=== PATIENT | male | born 1980 | race Hispanic/Latino ===

== ENCOUNTER 2024-04-03 13:47 | Emergency (ER) | payer SELFPAY ==
[~2024-04-03] VITALS: Ht 172.7 cm; Wt 108.9 kg
[~2024-04-03 13:47] MED LIST: ACET1TAB12 PO; CEPH-578 PO; NAPR-1023 PO
[2024-04-03 13:48] VITALS: BP 124/99; TEMP 97.9
[2024-04-03 14:28] LABS: COVID19 (SARS ANTIGEN RAPID) PRESUMPTIVE NEGATIVE (NEGATIVE)
[2024-04-03 14:30] LABS: INFLUENZA TYPE A Negative For Type A (NEGATIVE); INFLUENZA TYPE B Negative For Type B (NEGATIVE)
[2024-04-03] MEDS: IpraTROPium/alBUTERol SULFATE 3 ML SOLUTION IH ONE (14:40)
[2024-04-03 14:41] VITALS: PULSE 122; RESP 24
[2024-04-03] MEDS: ALBUTEROL 0.083% 2.5 MG/3 ML INH IH ONE (15:45)
[2024-04-03 15:48] VITALS: PULSE 120; RESP 20
[2024-04-03] MEDS ORDERED: Solu-medROL 125MG VIAL IM ONE (16:00)
[2024-04-03] MEDS ORDERED: PRED10TA23 PO (16:58)
[2024-04-03] MEDS ORDERED: ALBU18HF7 IH (16:58)
[2024-04-03] MEDS ORDERED: AZIT500T PO (16:58)
[2024-04-03] MEDS: Solu-medROL 125MG VIAL IVP ONE (18:16)
[2024-04-03] MEDS: 0.9%NACL 1000ML 1,000 ML IV ONE (18:16)
== END 2024-04-03 18:26 | disposition home or self-care (01) ==
LOC: EDH 13:47
DX: J06.9 Acute upper respiratory infection, unspecified (principal); Z20.822 Contact with and (suspected) exposure to COVID-19
CPT/HCPCS: 99284; 96374; 71046; 87426; 87804 ×2; 94640 ×2; J2919